=== PATIENT | male | born 1990 | race Caucasian/White ===

== ENCOUNTER 2022-10-04 08:28 | Emergency (ER) | payer MEDICAID, OTHER ==
[~2022-10-04] VITALS: Ht 182.9 cm; Wt 75.2 kg
[2022-10-04 08:50] VITALS: BP 156/98
[2022-10-04] MEDS ORDERED: FLUORESCEIN SOD OPTH TEST STRIP RIGHTEYE ONE (09:00)
[2022-10-04] MEDS ORDERED: TETRACAINE HCL 0.5% OPTH(EYE) SOLN 4ML RIGHTEYE ONE (09:00)
[2022-10-04] MEDS ORDERED: IBUP600T28 PO (09:40)
[2022-10-04] MEDS ORDERED: ERY05OO OP (09:40)
[2022-10-04] MEDS ORDERED: SODIUM CHLORIDE 0.9% 1,000 ML IV ONE (09:45)
== END 2022-10-04 11:22 | disposition home or self-care (01) ==
LOC: ER 08:28
DX: T15.01XA Foreign body in cornea, right eye, initial encounter (principal); X58.XXXA Exposure to other specified factors, initial encounter; Y93.89 Activity, other specified; Y92.89 Other specified places as the place of occurrence of the external cause; Y99.8 Other external cause status
CPT/HCPCS: 96360; 99284; J7030